=== PATIENT | male | born 1990 | race Caucasian/White ===

== ENCOUNTER 2017-04-23 16:07 | Emergency (ER) | payer SELFPAY ==
[~2017-04-23] VITALS: Ht 177.8 cm; Wt 82.0 kg
[2017-04-23 16:12] VITALS: TEMP 36.3; Ht 177.8 cm; Wt 82.0 kg
[2017-04-23] MEDS ORDERED: ONDANSETRON INJ 2 MG/ML 2 ML VIAL ONE (16:27)
[2017-04-23] MEDS ORDERED: SODIUM CHLORIDE 0.9% 1000ML 2,000 ML IV STA (16:30)
--- NOTE | 2017-04-23 16:37 | EMERGENCY ROOM VISIT NOTE ---
History Report prepared by Khadaribe: Chantelle Alexis Under the Supervision of: Dr. Hang Edouard D.O. First contact with patient: 16:22 Chief Complaint: ABDOMINAL PAIN Stated Complaint: ABD PAIN History of Present Illness The patient is a 26 year old male who presents to the Emergency Room with complaints of severe lower abdominal pain that started this morning. The patient notes that he had 4 drinks last night and woke up this morning feeling as he had an upset stomach. The patient was driving from [place] to [employer] when he started having episodes of vomiting. The patient is unsure of how many episodes he has had. The patient notes he started to threw up water which eventually started to have what he thought was a small amount of dark blood in his vomit. The patient thought he had food poisoning. He notes that he only has eaten frozen fish and a potato pancake in the past two days. The patient denies any previous surgeries on his stomach and denies any other medical problems. He also notes pain in his genitalia when vomiting but it is only with vomiting. The patient works as a cook. Pt denies headache, change in vision, fevers, chest pain, shortness of breath, diarrhea, pain with urination, and melena. Source of History: patient Onset: This morning Position: abdomen Timing: constant Associated Symptoms: + nausea Note: Pt denies headache, change in vision, fevers, chest pain, shortness of breath, diarrhea, pain with urination, and melena. Review of Systems See HPI for pertinent positives & negatives. A total of 10 systems reviewed and were otherwise negative. Family History no pertinent family history stated Social History Smoking Status: Current Every Day Smoker Occupation Status: employed Current/Historical Medications Scheduled PRN Ondansetron Hcl (Zofran), 4 MG PO TID PRN for Nausea Allergies Coded Allergies: No Known Allergies (Unverified , 04/23/17) Physical Exam Vital Signs Date Time Temp Pulse Resp B/P (MAP) Pulse Ox O2 Delivery O2 Flow Rate FiO2 04/23/17 20:51 72 18 100/65 98 04/23/17 19:15 76 18 114/53 94 Room Air 04/23/17 18:08 76 16 121/57 97 Room Air 04/23/17 16:54 74 24 148/68 98 Room Air 04/23/17 16:42 67 04/23/17 16:12 36.3 87 24 128/79 99 Room Air Physical Exam GENERAL: sitting up, dry heaving, holding epigastric with yellow/clear vomit, in moderate distress EYE EXAM: normal conjunctiva OROPHARYNX: no exudate, no erythema, lips, buccal mucosa, and tongue normal and mucous membranes are moist NECK: supple, no nuchal rigidity, no adenopathy, non-tender LUNGS: Clear to auscultation. Normal chest wall mechanics HEART: no murmurs, S1 normal and S2 normal ABDOMEN: abdomen soft, non-tender, normo-active bowel sounds, no masses, no rebound or guarding. Gastrocolt is negative BACK: Back is symmetrical on inspection and there is no deformity, no midline tenderness, no CVA tenderness. : Normal, testis non tender, no penile discharge, no masses SKIN: no rashes and no bruising UPPER EXTREMITIES: upper extremities are grossly normal. LOWER EXTREMITIES: No pitting edema. NEURO EXAM: No drift. Medical Decision & Procedures ER Provider Diagnostic Interpretation: Radiology results as stated below per my review and the radiologist's interpretation: CT SCAN OF THE ABDOMEN AND PELVIS WITH IV CONTRAST FINDINGS: Lung bases: The heart is normal in size and without pericardial effusion. The lung bases are clear. Liver: The contrast-enhanced liver is normal in size, contour, and attenuation. There is no intrahepatic biliary ductal dilatation. The hepatic veins and portal veins are patent. Gallbladder: Unremarkable. Spleen: Normal in size and attenuation. Pancreas: Unremarkable. Adrenal glands: Unremarkable. Kidneys: The contrast enhanced kidneys are normal in size and without hydronephrosis. The kidneys enhance symmetrically. Abdominal vasculature: The abdominal aorta is normal in course and caliber. Bowel: The small bowel and colon are normal in course and caliber. The colon is largely decompressed. The appendix is well-visualized and normal. Peritoneum: There is no intraperitoneal free air or abdominal ascites. Lymphadenopathy: None. Pelvic viscera: The bladder, prostate, and seminal vesicles are normal as visualized. Skeletal structures: No lytic or blastic lesions are seen. IMPRESSION: There are no acute infectious or inflammatory findings in the abdomen or pelvis. Electronically signed by: Erwin Nunez M.D. SINGLE VIEW CHEST FINDINGS: An AP, portable, upright chest radiograph is obtained. No prior studies are available for comparison at the time of dictation. The examination is mildly degraded by portable technique and patient rotation. The cardiomediastinal silhouette is unremarkable. The lungs and pleural spaces are clear. No pneumothorax is seen. The bony thorax is grossly intact. IMPRESSION: No active disease in the chest. Electronically signed by: Erwin Nunez M.D. Laboratory Results 04/23/17 16:35 Red Blood Count 5.10, Mean Corpuscular Volume 93.3, Mean Corpuscular Hemoglobin 33.7, Mean Corpuscular Hemoglobin Concent 36.1, Mean Platelet Volume 11.6, Neutrophils (%) (Auto) 85.7, Lymphocytes (%) (Auto) 6.5, Monocytes (%) (Auto) 6.7, Eosinophils (%) (Auto) 0.1, Basophils (%) (Auto) 0.2, Neutrophils # (Auto) 21.09, Lymphocytes # (Auto) 1.60, Monocytes # (Auto) 1.66, Eosinophils # (Auto) 0.02, Basophils # (Auto) 0.05 04/23/17 19:21 Test 04/23/17 16:35 04/23/17 17:23 04/23/17 19:21 White Blood Count 24.62 K/uL (4.8-10.8) Red Blood Count 5.10 M/uL (4.7-6.1) Hemoglobin 17.2 g/dL (14.0-18.0) Hematocrit 47.6 % (42-52) Mean Corpuscular Volume 93.3 fL (80-100) Mean Corpuscular Hemoglobin 33.7 pg (25-34) Mean Corpuscular Hemoglobin Concent 36.1 g/dl (32-36) Platelet Count 224 K/uL (130-400) Mean Platelet Volume 11.6 fL (7.4-10.4) Neutrophils (%) (Auto) 85.7 % Lymphocytes (%) (Auto) 6.5 % Monocytes (%) (Auto) 6.7 % Eosinophils (%) (Auto) 0.1 % Basophils (%) (Auto) 0.2 % Neutrophils # (Auto) 21.09 K/uL (1.4-6.5) Lymphocytes # (Auto) 1.60 K/uL (1.2-3.4) Monocytes # (Auto) 1.66 K/uL (0.11-0.59) Eosinophils # (Auto) 0.02 K/uL (0-0.5) Basophils # (Auto) 0.05 K/uL (0-0.2) RDW Standard Deviation 41.9 fL (36.4-46.3) RDW Coefficient of Variation 12.3 % (11.5-14.5) Immature Granulocyte % (Auto) 0.8 % Immature Granulocyte # (Auto) 0.20 K/uL (0.00-0.02) Total Bilirubin 0.9 mg/dl (0.2-1) Direct Bilirubin 0.3 mg/dl (0-0.2) Aspartate Amino Transf (AST/SGOT) 19 U/L (15-37) Alanine Aminotransferase (ALT/SGPT) 20 U/L (12-78) Alkaline Phosphatase 72 U/L (45-117) Total Protein 8.2 gm/dl (6.4-8.2) Albumin 4.9 gm/dl (3.4-5.0) Lipase 75 U/L (73-393) Urine Color YELLOW Urine Appearance CLEAR (CLEAR) Urine pH 5.5 (4.5-7.5) Urine Specific [place] 1.023 (1.000-1.030) Urine Protein NEG (NEG) Urine Glucose (UA) NEG (NEG) Urine Ketones 4+ (NEG) Urine Occult Blood NEG (NEG) Urine Nitrite NEG (NEG) Urine Bilirubin NEG (NEG) Urine Urobilinogen NEG (NEG) Urine Leukocyte Esterase NEG (NEG) Urine WBC (Auto) 0 /hpf (0-5) Urine RBC (Auto) 0-4 /hpf (0-4) Urine Hyaline Casts (Auto) 0 /lpf (0-5) Urine Epithelial Cells (Auto) 0-5 /lpf (0-5) Urine Bacteria (Auto) NEG (NEG) Venous Blood pH 7.38 (7.36-7.41) Venous Blood Partial Pressure CO2 35 mmHg (38.0-50.0) Venous Blood Partial Pressure O2 63 mmHg Venous Blood HCO3 20 mmol/L Venous Blood Oxygen Saturation 89.2 % Venous Blood Base Excess -4.1 mEq/L Anion Gap 11.0 mmol/L (3-11) Est Creatinine Clear Calc Drug Dose 130.2 ml/min Estimated GFR () 136.4 Estimated GFR (Non- 117.7 BUN/Creatinine Ratio 15.7 (10-20) Lactic Acid Level 1.7 mmol/L (0.4-2.0) Calcium Level 8.3 mg/dl (8.5-10.1) Chemistry Specimen Hemolysis Laboratory results per my review. Medications Administered Medications (Trade) Dose Ordered Sig/Rachel Route Start Time Stop Time Status Last Admin Dose Admin Ondansetron HCl (Zofran Inj) 4 mg STK-MED ONCE .ROUTE 04/23/17 16:27 04/23/17 16:28 DC 04/23/17 16:40 4 MG Sodium Chloride 2,000 ml @ 999 mls/hr Q2H1M STAT IV 04/23/17 16:30 04/23/17 18:30 DC 04/23/17 16:41 999 MLS/HR ED Course ED COURSE: Vital signs were reviewed and showed normal. The patients medical record was reviewed The above diagnostic studies were performed and reviewed. ED treatments and interventions as stated above. 1622: The patient was evaluated in room C6. A complete history and physical examination was performed, 1627: Zofran Inj 4 mg .ROUTE 1630: Sodium Chloride 2000 ml @ 999 mls/hr IV. 2006: The patient states he is feeling better. 2030: Upon reevaluation, the patient is resting.I discussed my findings with the patient and he understands and agrees with the treatment plan. Based on the patients age, coexisting illnesses, exam and lab findings the decision to treat as an outpatient was made. The patient remained stable while under my care. The patient appeared well at the time of discharge. Medical Decision Differential diagnoses includes but is not limited to gastritis, peptic ulcer disease, GERD, gallbladder disease, pancreatitis, small bowel obstruction, acute coronary syndrome, pericarditis, ischemic bowel, irritable bowel disease, irritable bowel syndrome, appendicitis, diverticulitis, malignancy, hernia, urinary tract infection, torsion, [/ectopic (if female)], perforation, trauma, infectious. Patient is a 26-year-old male who presents the ER following eating fish last night and having persistent vomiting since 10 AM this morning. He is been unable to keep anything down. Vitals are fairly unremarkable. Labs were remarkable for a leukocytosis of 24,000, CO2 of 17 and a gap of 22. Creatinine was slightly elevated at 1.6. Urine shows a plus for ketones. CT of abdomen and pelvis was performed with the significant leukocytosis but was unremarkable. Chest x-ray was unremarkable. He is given 2 L of fluids along with Zofran. He felt 100% better. He was taking fluids and consequently BMP was repeated. Creatinine improved along with CO2. Anion gap resolved. I question whether this is an alcoholic ketoacidosis but favor unlikely. Patient was tolerating fluids and felt back to baseline. His vomit was Gastroccult and was heme-negative. He notes that the vomiting had in the ER was exactly what he was seen at home which he thought was blood. Based on this I do not believe that he is having any hematemesis. Patient was updated and discharged follow- up with PCP. Discussed with Pt concerning signs and symptoms to watch out for. Pt was instructed to follow up with their PCP and discussed with the patient their option to return to the ED at anytime for persistent or worsening symptoms. The appropriate anticipatory guidance and out-patient management, including indications for return to the emergency department, were explained at length to the patient and understood. Medication Reconcilliation Current Medication List: was personally reviewed by me Blood Pressure Screening Patient's blood pressure: Normal blood pressure Blood pressure disposition: Did not require urgent referral Impression Primary Impression: Acute gastroenteritis Scribe Attestation The scribe's documentation has been prepared under my direction and personally reviewed by me in its entirety. I confirm that the note above accurately reflects all work, treatment, procedures, and medical decision making performed by me. Departure Information Dispostion Home / Self-Care Prescriptions Ondansetron Hcl (ZOFRAN) 4 Mg Tab 4 MG PO TID Y for Nausea, #30 TAB Prov: Hang Edouard, DO 04/23/17 Referrals No Doctor, Assigned (PCP) Forms HOME CARE DOCUMENTATION FORM, IMPORTANT VISIT INFORMATION Patient Instructions ED Gastroenteritis Non Infec, My [facility] Additional Instructions Please follow up with your primary care doctor or if you are a student, [facility] with in the next 24 hours. Any worsening of your symptoms, please return to the ED immediately. This includes any fevers greater than 100.4, worsening pain, chest pain, shortness breath, persistent nausea, vomiting, unable to eat or drink, or any other concerning signs or symptoms from your standpoint. Please take Zofran as needed for nausea. Please only drink fluids tonight. If you notice any dark tarry stools, blood in your stool or vomiting blood please return immediately to the ER.
[2017-04-23 16:44] LABS: HEMATOCRIT 47.6 % (42-52); MEAN CELL VOLUME 93.3 fL (80-100); MEAN CORPUSCULAR HEMOGLOBIN 33.7 pg (25-34); MEAN CORPUSCULAR HGB CONC 36.1 g/dl (32-36); MEAN PLATELET VOLUME 11.6 fL (7.4-10.4); PLATELET COUNT 224 K/uL (130-400); WHITE BLOOD COUNT 24.62 K/uL (4.8-10.8)
[2017-04-23] MEDS ORDERED: OPTIRAY 320 IV PRN (16:45)
[2017-04-23 17:00] LABS: BUN/CREATININE RATIO 9.8 (10-20); CALCIUM 9.8 mg/dl (8.5-10.1); CREATININE 1.6 mg/dl (0.60-1.40); POTASSIUM 3.6 mmol/L (3.5-5.1)
[2017-04-23 17:27] LABS: BASO % 0.2 %; BASO ABS # 0.05 K/uL (0-0.2); COMPLETE YES; EOS % 0.1 %; IG% 0.8 %; LYMPH % 6.5 %; MONO % 6.7 %; NEUT % 85.7 %
[2017-04-23 17:38] LABS: URINE APPEARANCE CLEAR (CLEAR); URINE BILIRUBIN NEG (NEG); URINE COLOR YELLOW; URINE EPITHELIAL CELL AUTO 0-5 /lpf (0-5); URINE NITRITE NEG (NEG); URINE PH 5.5 (4.5-7.5); URINE SPECIFIC GRAVITY 1.023 (1.000-1.030); UROBILINOGEN NEG (NEG); ZZUR CULT IF INDIC CLEAN CATCH NO
[2017-04-23 17:41] LABS: MANUAL MICROSCOPIC REQUIRED? NO; REVIEW REQ? NO
--- NOTE | 2017-04-23 17:42 | DIAGNOSTIC IMAGING REPORT ---
CT SCAN OF THE ABDOMEN AND PELVIS WITH IV CONTRAST CLINICAL HISTORY: Generalized abdominal pain. Vomiting. COMPARISON STUDY: No priors. TECHNIQUE: Following the IV administration of 94 cc of Optiray 320, CT scan of the abdomen and pelvis is performed from the lung bases to the proximal femora. Images are reviewed in the axial, sagittal, and coronal planes. IV contrast was administered without complication. Automated dose control exposure was utilized. A dose lowering technique was utilized adhering to the principles of ALARA. CT DOSE: 290.13 mGy.cm FINDINGS: Lung bases: The heart is normal in size and without pericardial effusion. The lung bases are clear. Liver: The contrast-enhanced liver is normal in size, contour, and attenuation. There is no intrahepatic biliary ductal dilatation. The hepatic veins and portal veins are patent. Gallbladder: Unremarkable. Spleen: Normal in size and attenuation. Pancreas: Unremarkable. Adrenal glands: Unremarkable. Kidneys: The contrast enhanced kidneys are normal in size and without hydronephrosis. The kidneys enhance symmetrically. Abdominal vasculature: The abdominal aorta is normal in course and caliber. Bowel: The small bowel and colon are normal in course and caliber. The colon is largely decompressed. The appendix is well-visualized and normal. Peritoneum: There is no intraperitoneal free air or abdominal ascites. Lymphadenopathy: None. Pelvic viscera: The bladder, prostate, and seminal vesicles are normal as visualized. Skeletal structures: No lytic or blastic lesions are seen. IMPRESSION: There are no acute infectious or inflammatory findings in the abdomen or pelvis. Electronically signed by: Erwin Nunez M.D. 04/23/2017 5:41 PM Dictated Date/Time: 04/23/2017 5:35 PM
--- NOTE | 2017-04-23 18:57 | DIAGNOSTIC IMAGING REPORT ---
SINGLE VIEW CHEST CLINICAL HISTORY: Vomiting. FINDINGS: An AP, portable, upright chest radiograph is obtained. No prior studies are available for comparison at the time of dictation. The examination is mildly degraded by portable technique and patient rotation. The cardiomediastinal silhouette is unremarkable. The lungs and pleural spaces are clear. No pneumothorax is seen. The bony thorax is grossly intact. IMPRESSION: No active disease in the chest. Electronically signed by: Erwin Nunez M.D. 04/23/2017 6:56 PM Dictated Date/Time: 04/23/2017 6:55 PM
[2017-04-23 20:03] LABS: BUN/CREATININE RATIO 15.7 (10-20); CREATININE 0.88 mg/dl (0.60-1.40)
[2017-04-23 20:04] LABS: POTASSIUM 4.2 mmol/L (3.5-5.1)
[2017-04-23 20:29] LABS: VEN BLD GAS O2 SATURATION 89.2 %; VEN BLOOD GAS BASE EXCESS -4.1 mEq/L
[2017-04-23] MEDS ORDERED: ONDA4TAB65 PO (20:35)
[2017-04-23 20:43] LABS: CALCIUM 8.3 mg/dl (8.5-10.1)
[2017-04-23 20:51] VITALS: BP 100/65; PULSE 72; O2SAT 98
== END 2017-04-23 20:52 | disposition home or self-care (01) ==
LOC: C.EDB 16:08 → C.EDC 20:52
DX: K52.9 Noninfective gastroenteritis and colitis, unspecified (principal); F17.200 Nicotine dependence, unspecified, uncomplicated